=== PATIENT | female | born 1950 | race Caucasian/White ===

== ENCOUNTER 2020-12-01 10:59 | Outpatient (CLI) | payer MEDICARE, OTHER ==
--- NOTE | 2020-12-01 14:39 | PET ---
Radionucleotide PET scan with CT attenuation correction HISTORY: Right breast mass. Malignant neoplasm of upper outer quadrant left female breast. Initial st aging. FINDINGS: The very large, lobular heterogeneous mass deep within the superior lateral aspect of the l eft breast extending into the left chest wall and showing extensive overlying ulceration measures up to 6.4 cm x 4.5 cm greatest diameters on the axial images and shows max SUV 16.5. Immediately below the left second costosternal junction, a subtle 1.4 cm oval soft tissue nodule show s max SUV 15.5. A small focus of increased uptake immediately inferior to the lateral margin of the left T5 spinous process shows max SUV 9.8. No soft tissue mass is apparent on the nondiagnostic CT at tenuation correction images. An irregular shaped, spiculated soft tissue density mass at the far medial aspect of the right breast is 1.8 cm greatest diameter on the CT images. It contains a punctate focus of internal calcification and shows max SUV 10.4. Physiologic uptake of radiotracer is present within the enteric system and along each urinary tract. Hyperdense stones are present within the gallbladder lumen. No evidence of bowel obstruction or infla mmation. IMPRESSION : Markedly hypermetabolic activity associated with the large, ulcerated left breast/axillary mass and t he spiculated right breast mass. 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 Cholelithiasis.
== END 2020-12-01 11:00 | disposition home or self-care (01) ==
LOC: PET 10:59
PROVIDERS: ATTEND Surgery
DX: C50.412 Malignant neoplasm of upper-outer quadrant of left female breast (principal); N63.10 Unspecified lump in the right breast, unspecified quadrant; K80.20 Calculus of gallbladder without cholecystitis without obstruction
CPT/HCPCS: 78815; A9552

== ENCOUNTER 2021-03-14 08:06 | Outpatient (CLI) | payer MEDICARE, OTHER | END 2021-03-14 08:07 | disposition home or self-care (01) | LOC: PET 08:06 | PROVIDERS: ATTEND Internal Medicine Hematology & Oncology | DX: C50.412 Malignant neoplasm of upper-outer quadrant of left female breast (principal); C50.211 Malignant neoplasm of upper-inner quadrant of right female breast | CPT/HCPCS: 78815; A9552 ==

== ENCOUNTER 2021-05-25 15:12 | Inpatient (IN) | payer MEDICARE ==
[~2021-05-25 15:12] MED LIST: Iopamidol-370 76% 500 ML 1 ML ONE
[2021-05-25 16:09] LABS: #Lymphocytes 0.9 thou/uL (1.20-3.40); #Monocytes 0.4 thou/uL (0.11-0.59); #Neutrophils 5.4 thou/uL (1.40-6.50); %Basophils 0.4 % (0.0-1.0); %Eosinophils 0.2 % (0.0-10.0); %Lymphocytes 13.5 % (21.0-51.0); %Monocytes 5.6 % (0.0-10.0); %Neutrophils 80.3 % (42.0-75.0); Hemoglobin 12.5 g/dL (12.0-16.0); Mean Corpuscular HGB CONC 35.4 g/dL (32.0-36.0); Mean Corpuscular Hemoglobin 34.9 pg (27.0-31.0); Mean Corpuscular Volume 98.7 fL (78.0-98.0); Mean Platelet Volume 6.9 fL (7.4-10.4); Platelet Count 198 thou/uL (130-400); RBC Distribution Width 12.4 % (11.5-14.5); Red Blood Cell (RBC) Count 3.58 mill/uL (4.20-5.40); White Blood Cell (WBC) Count 6.7 thou/uL (4.8-10.8)
[2021-05-25 16:31] LABS: ALT (SGPT) 8 U/L (8-55); AST (SGOT) 18 U/L (5-34); Albumin 4.3 g/dL (3.4-4.8); Alkaline Phosphatase 59 U/L (40-110); Anion Gap 12 mmol/L (10-20); BUN (Urea Nitrogen) 15 mg/dL (9.8-20.1); Bilirubin, Total 2.5 mg/dL (0.2-1.2); Calc. Creatinine Clearance 0 mL/min (70-130); Calcium 9.8 mg/dL (7.8-10.44); Carbon Dioxide 27 mmol/L (23-31); Chloride 100 mmol/L (98-107); Globulin 2.9 g/dL (2.4-3.5); Glucose 123 mg/dL (83-110); Lipase 37 U/L (8-78); Potassium 4.2 mmol/L (3.5-5.1); Protein, Total 7.2 g/dL (5.8-8.1); Sodium 135 mmol/L (136-145)
[2021-05-25 16:52] LABS: Bacteria/HPF None Seen HPF (None Seen); Bilirubin Negative (Negative); Blood, Urine 2+ (Negative); Clarity Turbid (Clear); Glucose, Urine (Dipstick) Normal (Negative); Ketone, Urine 40 mg/dL (Negative); Leukocyte Negative Leu/uL (Negative); Nitrite Negative (Negative); Protein, Urine (Dipstick) 100 mg/dL (Neg-Trace); Squamous Epithelial None Seen HPF (0-3); Urobilinogen Normal mg/dL (Less than 2); WBC/HPF None Seen HPF (0-3); pH, Urine 5.5 (5.0-9.0)
[2021-05-25] MEDS ORDERED: Morphine 4 MG/ML VIAL ONE (18:20)
[2021-05-25] MEDS ORDERED: Ondansetron PF 4 MG/2 ML Vial ONE (18:21)
[2021-05-25] MEDS ORDERED: Piperacillin/Tazobactam 4.5 GM in Sodium Chloride 0.9% 100 ML IVPB SCH (21:00)
[2021-05-25 23:19] VITALS: BMI 24.0
[2021-05-26] MEDS ORDERED: Morphine 2 MG/ML VIAL SLOW IVP PRN ×2 (01:34→11:25)
[2021-05-26] MEDS: Piperacillin/Tazobactam 3.375 GM in Sodium Chloride 0.9% 100 ML IVPB SCH ×3 (02:35→17:28)
[2021-05-26] MEDS ORDERED: cefOXitin Sodium/Dextrose,Iso 2 GM in Premix Bag 1 BAG IVPB SCH (07:45)
[2021-05-26] MEDS ORDERED: cefOXitin 2 GM in Sodium Chloride 0.9% 100 ML IVPB SCH (07:45)
[2021-05-26] MEDS ORDERED: SUGAMMADEX SODIUM 200 MG/2 ML VIAL ONE (07:59)
[2021-05-26] MEDS ORDERED: Sodium Chloride 0.9% 100 ML ONE (09:29)
[2021-05-26] MEDS ORDERED: Piperacillin/Tazobactam 3.375 GM VIAL ONE (09:29)
[2021-05-26] MEDS ORDERED: Iothalamate Meglumine 60% 50 ML VIAL FS ONE (09:44)
[2021-05-26] MEDS ORDERED: Bupivacaine 0.25% HCL 30 ML VIAL ONE (09:44)
[2021-05-26] MEDS ORDERED: Lidocaine 1% w/Epinephrine 1:100K 20 ML VIAL ONE (09:44)
[2021-05-26] MEDS ORDERED: Fentanyl 100 MCG/2 ML VIAL ONE (10:04)
[2021-05-26] MEDS ORDERED: Succinylcholine 200 MG/10 ml SYRINGE FS ONE (10:18)
[2021-05-26] MEDS ORDERED: Ketorolac Tromethamine 30 MG/ML VIAL ONE (10:18)
[2021-05-26] MEDS ORDERED: Dexamethasone 20 MG/5 ML VIAL ONE (10:18)
[2021-05-26] MEDS ORDERED: PHENYLEPHRINE-NS 100 MCG/ML 10 ML SYRINGE ONE (10:18)
[2021-05-26] MEDS ORDERED: Ondansetron PF 4 MG/2 ML Vial ONE (10:18)
[2021-05-26] MEDS ORDERED: PROPOFOL 200 MG/20 ML VIAL ONE (10:18)
[2021-05-26] MEDS ORDERED: Lidocaine 1% PF 5 ML VIAL ONE (10:18)
[2021-05-26] MEDS ORDERED: Rocuronium Bromide 10 MG/ML (10ML VIAL) ONE (10:18)
[2021-05-26] MEDS ORDERED: Ondansetron PF 4 MG/2 ML Vial IVP PRN (11:25)
[2021-05-26] MEDS ORDERED: HYDROcodone/Acetaminophen 10/325 mg Tablet PO PRN ×2 (11:25)
[2021-05-26] MEDS ORDERED: Promethazine HCl 25 MG/ML VIAL IM PRN (11:25)
[2021-05-26] MEDS ORDERED: Mag-Al 1200 mg/1200 mg/30 ML UDCUP PO PRN (11:25)
[2021-05-26] MEDS ORDERED: hydrALAZINE 20 MG/ML VIAL SLOW IVP PRN (11:25)
[2021-05-26] MEDS ORDERED: Dextrose 5% in Water 1,000 ML IV PRN (11:25)
[2021-05-26] MEDS ORDERED: Dextrose 50% Abboject 50 ML SYRINGE SLOW IVP PRN (11:25)
[2021-05-26] MEDS ORDERED: Calcium Carbonate 500 MG ChewTAB PO PRN (11:25)
[2021-05-26] MEDS ORDERED: Morphine 4 MG/ML VIAL SLOW IVP PRN (11:25)
[2021-05-26] MEDS: Ketorolac Tromethamine 30 MG/ML VIAL IVP SCH ×2 (14:40→17:29)
[2021-05-26] MEDS: D5 1/2 NS w/20 mEq KCL 1,000 ML IV SCH ×2 (17:29→20:16)
[2021-05-26] MEDS ORDERED: Metoprolol Tartrate 25 MG TAB PO SCH (18:15)
[2021-05-26 18:20] LABS: Hemoglobin 12.5 g/dL (12.0-16.0); Mean Corpuscular HGB CONC 33.9 g/dL (32.0-36.0); Mean Corpuscular Hemoglobin 34.6 pg (27.0-31.0); Mean Platelet Volume 8.2 fL (7.4-10.4); Platelet Count 147 thou/uL (130-400); RBC Distribution Width 12.7 % (11.5-14.5); White Blood Cell (WBC) Count 6.2 thou/uL (4.8-10.8)
[2021-05-26 18:43] LABS: Band 26 % (5-11); Burr Cells SLIGHT = 2-5 cells (100X) (0-1/hpf); Lymphocytes 4 % (21-51); MDiff Complete? YES; Macrocytosis SLIGHT = 6-15 cells (100X) (0-5/hpf); Monocytes 3 % (0-10); Neutrophil 63 % (42-75); Platelet Morphology Comment Appears Adequate; Reactive Lymphocytes 4 % (0-10)
[2021-05-26] MEDS ORDERED: Digoxin 0.5 MG/2 ML AMP SLOW IVP SCH (20:45)
[2021-05-26] MEDS: Famotidine 20 MG TAB PO SCH (20:53)
[2021-05-26] MEDS: Famotidine/PF 20 mg/2ml Vial SLOW IVP SCH (20:56)
[2021-05-27] MEDS: Piperacillin/Tazobactam 3.375 GM in Sodium Chloride 0.9% 100 ML IVPB SCH ×2 (02:04→09:28)
[2021-05-27] MEDS: D5 1/2 NS w/20 mEq KCL 1,000 ML IV SCH ×2 (02:05→12:37)
[2021-05-27] MEDS ORDERED: Digoxin 0.5 MG/2 ML AMP SLOW IVP SCH (02:45)
[2021-05-27 04:59] LABS: #Lymphocytes 0.8 thou/uL (1.20-3.40); #Monocytes 0.5 thou/uL (0.11-0.59); #Neutrophils 3.9 thou/uL (1.40-6.50); %Basophils 0.1 % (0.0-1.0); %Eosinophils 0.8 % (0.0-10.0); %Lymphocytes 15.3 % (21.0-51.0); %Neutrophils 74.8 % (42.0-75.0); Hemoglobin 9.9 g/dL (12.0-16.0); Mean Corpuscular HGB CONC 34.4 g/dL (32.0-36.0); Mean Corpuscular Hemoglobin 35.1 pg (27.0-31.0); Mean Platelet Volume 7.1 fL (7.4-10.4); Platelet Count 123 thou/uL (130-400); RBC Distribution Width 12.6 % (11.5-14.5); Red Blood Cell (RBC) Count 2.81 mill/uL (4.20-5.40); White Blood Cell (WBC) Count 5.2 thou/uL (4.8-10.8)
[2021-05-27 05:21] LABS: ALT (SGPT) 32 U/L (8-55); AST (SGOT) 45 U/L (5-34); Alkaline Phosphatase 52 U/L (40-110); Anion Gap 7 mmol/L (10-20); BUN (Urea Nitrogen) 12 mg/dL (9.8-20.1); Bilirubin, Total 1.3 mg/dL (0.2-1.2); Calc. Creatinine Clearance 60 mL/min (70-130); Calcium 8.5 mg/dL (7.8-10.44); Carbon Dioxide 26 mmol/L (23-31); Chloride 108 mmol/L (98-107); Globulin 2.3 g/dL (2.4-3.5); Glucose 162 mg/dL (83-110); Lipase 55 U/L (8-78); Potassium 4.2 mmol/L (3.5-5.1); Protein, Total 5.3 g/dL (5.8-8.1); Sodium 137 mmol/L (136-145)
[2021-05-27] MEDS: Ketorolac Tromethamine 30 MG/ML VIAL IVP SCH ×3 (05:41→11:31)
[2021-05-27] MEDS ORDERED: Enoxaparin Sodium 30 MG/0.3 ML SYRINGE SC SCH (09:00)
[2021-05-27] MEDS: Famotidine 20 MG TAB PO SCH (09:27)
[2021-05-27] MEDS: Famotidine/PF 20 mg/2ml Vial SLOW IVP SCH (09:28)
[2021-05-27 15:29] VITALS: BP 107/52; TEMP 97.7
[2021-05-28] MEDS ORDERED: Aspirin 81 mg Enteric Coated Tablet PO SCH (09:00)
== END 2021-05-27 16:23 | disposition home or self-care (01) | DRG 419 ==
LOC: ERS 15:12 → SURG A 20:25 → OBSVTOIN 05-26 11:25 → 2NO 05-26 18:47
PROVIDERS: ADMIT Surgery; ATTEND Surgery
PROC: 0FT44ZZ Resection of Gallbladder, Percutaneous Endoscopic Approach (ICD-10-PCS; principal; 2021-05-26)
PROC: BF101ZZ Fluoroscopy of Bile Ducts using Low Osmolar Contrast (ICD-10-PCS; 2021-05-26)
DX: K81.0 Acute cholecystitis (principal); K82.A1 Gangrene of gallbladder in cholecystitis; C50.912 Malignant neoplasm of unspecified site of left female breast; I48.0 Paroxysmal atrial fibrillation; D64.9 Anemia, unspecified; E86.0 Dehydration; Z17.0 Estrogen receptor positive status [ER+]; Z79.899 Other long term (current) drug therapy; Z98.42 Cataract extraction status, left eye; Z98.41 Cataract extraction status, right eye
CPT/HCPCS: 36415; 47532; 74177; 76705; 80053; 81003; 81015; 82248; 83605; 83690; 83735; 84443; 84484; 85025; 87040; 87070; 87086; 87205; 88304; 93005; 93010; 94760; 96365; 96366; 96375; 96376; G0378; J1100; J1160; J1650; J1885; J2270; J2405; J2543; J2704; J3010; J3480; J3490; Q9961; Q9967; S0020

== ENCOUNTER 2021-06-12 07:45 | Outpatient (CLI) | payer MEDICARE, OTHER | END 2021-06-12 07:46 | disposition home or self-care (01) | LOC: PET 07:45 | PROVIDERS: ATTEND Internal Medicine Hematology & Oncology | DX: C50.412 Malignant neoplasm of upper-outer quadrant of left female breast (principal); C50.211 Malignant neoplasm of upper-inner quadrant of right female breast | CPT/HCPCS: 78815; A9552 ==

== ENCOUNTER 2021-09-05 08:03 | Outpatient (CLI) | payer MEDICARE, OTHER | END 2021-09-05 08:04 | disposition home or self-care (01) | LOC: PET 08:03 | PROVIDERS: ATTEND Internal Medicine Hematology & Oncology | DX: C50.919 Malignant neoplasm of unspecified site of unspecified female breast (principal); C79.9 Secondary malignant neoplasm of unspecified site | CPT/HCPCS: 78815; A9552 ==

== ENCOUNTER 2021-12-05 12:30 | Outpatient (CLI) | payer MEDICARE, OTHER | END 2021-12-05 12:31 | disposition home or self-care (01) | LOC: PET 12:30 | PROVIDERS: ATTEND Internal Medicine Hematology & Oncology | DX: C50.412 Malignant neoplasm of upper-outer quadrant of left female breast (principal); C50.211 Malignant neoplasm of upper-inner quadrant of right female breast | CPT/HCPCS: 78815; A9552 ==

== ENCOUNTER 2022-03-13 11:00 | Outpatient (CLI) | payer MEDICARE, OTHER | END 2022-03-13 11:01 | disposition home or self-care (01) | LOC: PET 11:00 | PROVIDERS: ATTEND Internal Medicine Hematology & Oncology | DX: C50.412 Malignant neoplasm of upper-outer quadrant of left female breast (principal); C50.211 Malignant neoplasm of upper-inner quadrant of right female breast | CPT/HCPCS: 78815; A9552 ==

== ENCOUNTER 2022-06-12 11:00 | Outpatient (CLI) | payer MEDICARE, OTHER | END 2022-06-12 11:01 | disposition home or self-care (01) | LOC: PET 11:00 | PROVIDERS: ATTEND Internal Medicine Hematology & Oncology | DX: C50.412 Malignant neoplasm of upper-outer quadrant of left female breast (principal); C50.211 Malignant neoplasm of upper-inner quadrant of right female breast | CPT/HCPCS: 78815; A9552 ==

== ENCOUNTER 2022-09-18 11:00 | Outpatient (CLI) | payer MEDICARE, OTHER | END 2022-09-18 11:01 | disposition home or self-care (01) | LOC: PET 11:00 | PROVIDERS: ATTEND Internal Medicine Hematology & Oncology | DX: C50.412 Malignant neoplasm of upper-outer quadrant of left female breast (principal); C50.211 Malignant neoplasm of upper-inner quadrant of right female breast; M43.8X6 Other specified deforming dorsopathies, lumbar region | CPT/HCPCS: 78815; A9552 ==

== ENCOUNTER 2023-01-08 09:30 | Outpatient (CLI) | payer MEDICARE, OTHER | END 2023-01-08 09:31 | disposition home or self-care (01) | LOC: PET 09:30 | PROVIDERS: ATTEND Internal Medicine Hematology & Oncology | DX: C50.412 Malignant neoplasm of upper-outer quadrant of left female breast (principal); C50.211 Malignant neoplasm of upper-inner quadrant of right female breast | CPT/HCPCS: 78815; A9552 ==

== ENCOUNTER 2023-08-21 13:21 | Outpatient (CLI) | payer MEDICARE, OTHER ==
[2023-08-21 14:34] LABS: #Basophils 0.1 10x3/uL (0.0-0.2); #Eosinphils 0.3 10x3/uL (0.0-0.5); #Monocytes 0.5 10x3/uL (0.0-1.1); #Neutrophils 1.5 10x3/uL (1.5-8.4); %Basophils 1.3 % (0.0-2.0); %Eosinophils 6.8 % (0.0-6.0); %Lymphocytes 41.3 % (18.0-47.0); %Monocytes 12.7 % (0.0-10.0); %Neutrophils 37.6 % (40.0-75.0); Hematocrit 33.3 % (34.9-44.5); Hemoglobin 11.3 g/dL (12.0-15.5); Mean Corpuscular HGB CONC 33.9 g/dL (32.0-36.0); Mean Corpuscular Hemoglobin 34.7 pg (27.0-33.0); Mean Corpuscular Volume 102.1 fl (81.6-98.3); Mean Platelet Volume 9.6 fl (7.4-10.4); Platelet Count 163 10x3/uL (150-450); RBC Distribution Width 14.2 % (11.5-14.5); Red Blood Cell (RBC) Count 3.26 10x6/uL (3.90-5.03); White Blood Cell (WBC) Count 3.9 10x3/uL (3.5-10.5)
[2023-08-21 14:58] LABS: Anion Gap 13 mmol/L (10-20); BUN (Urea Nitrogen) 23 mg/dL (9.8-20.1); Calc. Creatinine Clearance 0 mL/min (70-130); Calcium 9.4 mg/dL (7.8-10.44); Carbon Dioxide 23 mmol/L (23-31); Chloride 107 mmol/L (98-107); Estimated GFR 69; Glucose 113 mg/dL (83-110); Potassium 4.3 mmol/L (3.5-5.1); Sodium 139 mmol/L (136-145)
== END 2023-08-21 13:22 | disposition home or self-care (01) ==
LOC: LABBT 13:21
PROVIDERS: ATTEND Specialist
DX: Z01.818 Encounter for other preprocedural examination (principal); C50.919 Malignant neoplasm of unspecified site of unspecified female breast
CPT/HCPCS: 71046; 80048; 85025; 93005; 93010

== ENCOUNTER 2023-08-27 07:38 | Observation (INO) | payer MEDICARE, OTHER ==
[2023-08-21 13:58] VITALS: BMI 26.5
[2023-08-27] MEDS ORDERED: Ketorolac Tromethamine 30 MG/ML VIAL ONE (08:18)
[2023-08-27] MEDS ORDERED: Acetaminophen 500 MG TAB ONE (08:18)
[2023-08-27] MEDS ORDERED: Bupivacaine 0.25% HCL 30 ML VIAL ONE (09:07)
[2023-08-27] MEDS ORDERED: EPINEPHrine 1 MG/ML AMP ONE (09:07)
[2023-08-27] MEDS ORDERED: fentaNYL PF 100 MCG/2 ML SYRINGE ONE ×2 (09:43)
[2023-08-27] MEDS ORDERED: Sodium Chloride 0.9% 100 ML ONE (09:44)
[2023-08-27] MEDS ORDERED: CEFAZOLIN 2 GM VIAL ONE (09:44)
[2023-08-27] MEDS ORDERED: Dexamethasone 20 MG/5 ML VIAL ONE (10:00)
[2023-08-27] MEDS ORDERED: ePHEDrine Sulfate 50 MG/10 ML VIAL ONE (10:00)
[2023-08-27] MEDS ORDERED: PROPOFOL 200 MG/20 ML VIAL ONE (10:00)
[2023-08-27] MEDS ORDERED: Lidocaine 1% PF 5 ML VIAL ONE (10:00)
[2023-08-27] MEDS ORDERED: PHENYLEPHRINE-NS 100 MCG/ML 10 ML SYRINGE ONE (10:00)
[2023-08-27] MEDS ORDERED: Ondansetron PF 4 MG/2 ML Vial ONE (10:00)
[2023-08-27] MEDS ORDERED: Ondansetron HCl/PF 4 MG/2 ML Vial IVP PRN (13:41)
[2023-08-27] MEDS ORDERED: Promethazine HCl 25 MG/ML VIAL IM PRN ×2 (13:41→16:41)
[2023-08-27] MEDS ORDERED: Ipratropium/Albuterol 3 ML NEB NEB PRN (16:41)
[2023-08-27] MEDS ORDERED: Dextrose 5% in Water 1,000 ML IV PRN (16:41)
[2023-08-27] MEDS ORDERED: Dextrose 50% Abboject 50 ML SYRINGE SLOW IVP PRN (16:41)
[2023-08-27] MEDS ORDERED: hydrALAZINE 20 MG/ML VIAL SLOW IVP PRN (16:41)
[2023-08-27] MEDS ORDERED: Morphine 2 MG/ML VIAL SLOW IVP PRN (16:41)
[2023-08-27] MEDS ORDERED: Ondansetron PF 4 MG/2 ML Vial IVP PRN (16:41)
[2023-08-27] MEDS ORDERED: HYDROcodone/Acetaminophen 7.5/325 mg Tablet PO PRN (16:41)
[2023-08-27] MEDS ORDERED: Glucagon 1 MG/ML KIT IM PRN (16:41)
[2023-08-27] MEDS ORDERED: Morphine 4 MG/ML VIAL SLOW IVP PRN (16:41)
[2023-08-27] MEDS ORDERED: FLU VACC QS2023(65UP)/MF59C/PF 60 MCG/0.5 ML SYRINGE IM ONE (16:45)
[2023-08-27] MEDS: D5 1/2 NS w/20 mEq KCL 1,000 ML IV SCH (17:18)
[2023-08-27] MEDS: HYDROcodone/Acetaminophen 7.5/325 mg Tablet PO PRN (21:09)
[2023-08-27] MEDS: Famotidine 20 MG TAB PO SCH (21:13)
[2023-08-28] MEDS: HYDROcodone/Acetaminophen 7.5/325 mg Tablet PO PRN (04:32)
[2023-08-28 05:06] LABS: #Monocytes 0.6 thou/uL (0.11-0.59); #Neutrophils 4.6 thou/uL (1.40-6.50); %Basophils 0.2 % (0.0-1.0); %Lymphocytes 17.4 % (21.0-51.0); %Monocytes 9.6 % (0.0-10.0); %Neutrophils 72.5 % (42.0-75.0); Hematocrit 30.7 % (36.0-47.0); Hemoglobin 10.4 g/dL (12.0-16.0); Mean Corpuscular HGB CONC 33.9 g/dL (32.0-36.0); Mean Corpuscular Hemoglobin 35.1 pg (27.0-31.0); Mean Corpuscular Volume 103.7 fl (78.0-98.0); Mean Platelet Volume 10.1 fL (7.4-10.4); Platelet Count 127 10x3/uL (130-400); RBC Distribution Width 14.4 % (11.5-14.5); Red Blood Cell (RBC) Count 2.96 mill/uL (4.20-5.40); White Blood Cell (WBC) Count 6.3 10x3/uL (4.8-10.8)
[2023-08-28] MEDS: Famotidine 20 MG TAB PO SCH (08:10)
[2023-08-28] MEDS: D5 1/2 NS w/20 mEq KCL 1,000 ML IV SCH (08:10)
[2023-08-28 12:12] VITALS: BP 121/69; TEMP 98.2
== END 2023-08-28 12:32 | disposition home or self-care (01) ==
LOC: SDC 07:38 → MSONC 16:08
PROVIDERS: ADMIT Specialist; ATTEND Specialist
PROC: 0HBV0ZZ Excision of Bilateral Breast, Open Approach (ICD-10-PCS; principal; 2023-08-27)
DX: C50.811 Malignant neoplasm of overlapping sites of right female breast (principal); C50.412 Malignant neoplasm of upper-outer quadrant of left female breast; C50.311 Malignant neoplasm of lower-inner quadrant of right female breast; I10 Essential (primary) hypertension
CPT/HCPCS: 36415; 85025; 88307; 88341; 88342; J0171; J1100; J1885; J2405; J2704; J3480; J3490; S0020

== ENCOUNTER 2024-08-25 09:30 | Outpatient (CLI) | payer MEDICARE, OTHER | END 2024-08-25 09:31 | disposition home or self-care (01) | LOC: PET 09:30 | PROVIDERS: ATTEND Internal Medicine Hematology & Oncology | DX: C50.412 Malignant neoplasm of upper-outer quadrant of left female breast (principal); C50.211 Malignant neoplasm of upper-inner quadrant of right female breast | CPT/HCPCS: 78815; A9552 ==